=== PATIENT | male | born 1995 | race Hispanic/Latino ===

== ENCOUNTER 2019-09-19 05:21 | Inpatient (IN) | payer MEDICAID, OTHER ==
[~2019-09-19] VITALS: Ht 162.6 cm; Wt 68.0 kg
[2019-09-19] VITALS (25 sets, daily range): BP systolic 96–135; BP diastolic 50–91
[2019-09-19] MEDS ORDERED: ONDANSETRON HCL 4 MG/2 ML VIAL ONE ×2 (05:41→10:36)
[2019-09-19] MEDS ORDERED: MORPHINE SULFATE 4 MG/1ML SYG ONE (05:41)
[2019-09-19 05:45] LABS: BASOPHILS % (AUTO) 0.3 % (0.0-5.0); EOSINOPHILS % (AUTO) 0.5 % (0.0-8.0); HEMATOCRIT 43.7 % (42-54); LYMPHOCYTES % (AUTO) 14.2 % (21.0-51.0); MEAN CORPUSCULAR HEMOGLOBIN 32.1 pg (27.0-33.0); MEAN CORPUSCULAR HGB CONC 37.3 g/dL (32.0-36.0); MEAN CORPUSCULAR VOLUME 86.2 fL (79-99); MONOCYTES % (AUTO) 7.8 % (3.0-13.0); NEUTROPHILS % (AUTO) 76.9 % (40.0-77.0); PLATELET COUNT (AUTO) 258 K/uL (130-400); RED BLOOD CELL COUNT(AUTO) 5.07 MIL/uL (4.50-6.20); RED CELL DISTRIBUTION WIDTH 11.2 % (11.0-15.5); WHITE BLOOD COUNT (AUTO) 14.4 K/uL (4.8-10.8)
[2019-09-19 06:10] LABS: ALBUMIN 4.3 g/dL (3.5-5.0); BILIRUBIN,TOTAL 0.7 mg/dL (0.2-1.0)
[2019-09-19 06:11] LABS: TOTAL PROTEIN, SERUM 7.6 g/dL (6.0-8.3)
[2019-09-19 06:16] LABS: POTASSIUM 2.9 mmol/L (3.5-5.1)
[2019-09-19] MEDS ORDERED: IOHEXOL-350 75 ML VIAL IV ONE (06:21)
[2019-09-19] MEDS ORDERED: POTASSIUM BICARB/CIT AC 25 MEQ TABLET.EFF ONE (06:23)
[2019-09-19] MEDS ORDERED: ZOSYN 3.375GM+NS 50ML 50 ML IV ONE (07:37)
[2019-09-19] MEDS ORDERED: POTASSIUM CHLORIDE 20MEQ/100ML 100 ML IV ONE (08:56)
[2019-09-19] MEDS ORDERED: LIDOCAINE HCL-MPF 1% 2ML VIAL ONE (08:57)
[2019-09-19] MEDS ORDERED: PROPOFOL 10 MG/ML 20ML VIAL IV ONE (09:37)
[2019-09-19] MEDS ORDERED: SUCCINYLCHOLINE CHLORIDE 20 MG/ML 10 ML VIAL ONE (09:37)
[2019-09-19] MEDS ORDERED: MIDAZOLAM HCL 1 MG/ML 2ML VIAL ONE (09:37)
[2019-09-19] MEDS ORDERED: LIDOCAINE PF 2% 5ML ABBOJECT ONE (09:37)
[2019-09-19] MEDS ORDERED: ROCURONIUM 10MG/1ML SYR 10 MG/ML ML ONE (09:38)
[2019-09-19] MEDS ORDERED: FENTANYL CITRATE PF 50 MCG/1 ML 5ML AMP IV ONE (09:38)
[2019-09-19 09:42] LABS: APPEARANCE,URINE Clear (CLEAR); BILIRUBIN,URINE Negative (NEGATIVE); COLOR,URINE Dark Yellow (YELLOW); GLUCOSE, URINE (UA) Negative (NEGATIVE); KETONES,URINE 15 mg/dL (NEGATIVE); LEUKOCYTE ESTERASE ,URINE Negative (NEGATIVE); NITRATE,URINE Negative (NEGATIVE); OCCULT BLOOD,URINE Negative (NEGATIVE); PH,URINE 5.5 (5.0-8.0); PROTEIN,URINE Trace mg/dL (NEGATIVE)
[2019-09-19 09:49] LABS: AMPHET/METH SCREEN,URINE NEGATIVE (NEGATIVE); BARBITURATE SCREEN, URINE NEGATIVE (NEGATIVE); BENZODIAZEPINES SCREEN,URINE NEGATIVE (NEGATIVE); CANNABINOID SCREEN,URINE POSITIVE (NEGATIVE); COCAINE SCREEN,URINE POSITIVE (NEGATIVE); OPIATE SCREEN,URINE NEGATIVE (NEGATIVE); PHENCYCLIDINE SCREEN,URINE NEGATIVE (NEGATIVE)
[2019-09-19] MEDS ORDERED: BUPIVACAINE/PF 0.25% 30ML VIAL IJ ONE (10:21)
[2019-09-19] MEDS ORDERED: KETOROLAC TROMETHAMINE 30MG/ML ONE ×2 (10:35→18:46)
[2019-09-19] MEDS ORDERED: GLYCOPYRROLATE 1 MG/5 ML SYRINGE ONE (10:35)
[2019-09-19] MEDS ORDERED: NEOSTIGMINE 5MG/5ML SYR IV ONE (10:35)
[2019-09-19] MEDS ORDERED: MORPHINE-NS 50 MG/50 ML 50 ML IV PRN (11:00)
[2019-09-19] MEDS ORDERED: MEPERIDINE-PF 25 MG/ML SYG ONE (11:28)
[2019-09-19] MEDS: ONDANSETRON HCL 4 MG/2 ML VIAL IVP PRN ×2 (11:32→21:20)
[2019-09-19] MEDS: SODIUM CHLORIDE 0.9% 1000ML 1,000 ML IV SCH ×2 (12:33→20:30)
[2019-09-19] MEDS ORDERED: POTASSIUM CHLORIDE 20MEQ/100ML 100 ML IV PRN (13:00)
[2019-09-19] MEDS: ZOSYN 3.375GM+NS 50ML 50 ML IV SCH ×2 (13:00→20:30)
[2019-09-19] MEDS: LORAZEPAM 2 MG/ML 1 ML VIAL IVP PRN (21:37)
[2019-09-20] MEDS: KETOROLAC TROMETHAMINE 30MG/ML IV PRN ×2 (02:04→08:24)
[2019-09-20] MEDS: ONDANSETRON HCL 4 MG/2 ML VIAL IVP PRN ×2 (02:04→09:24)
[2019-09-20 03:00] VITALS: BP 111/50
[2019-09-20] MEDS: ZOSYN 3.375GM+NS 50ML 50 ML IV SCH ×3 (04:16→20:54)
[2019-09-20 05:51] LABS: BASOPHILS % (AUTO) 0.4 % (0.0-5.0); EOSINOPHILS % (AUTO) 0.8 % (0.0-8.0); HEMATOCRIT 38.2 % (42-54); LYMPHOCYTES % (AUTO) 9.1 % (21.0-51.0); MEAN CORPUSCULAR HEMOGLOBIN 31.1 pg (27.0-33.0); MEAN CORPUSCULAR HGB CONC 34.8 g/dL (32.0-36.0); MEAN CORPUSCULAR VOLUME 89.3 fL (79-99); MONOCYTES % (AUTO) 7.7 % (3.0-13.0); NEUTROPHILS % (AUTO) 81.5 % (40.0-77.0); PLATELET COUNT (AUTO) 223 K/uL (130-400); RED BLOOD CELL COUNT(AUTO) 4.28 MIL/uL (4.50-6.20); RED CELL DISTRIBUTION WIDTH 11.4 % (11.0-15.5); WHITE BLOOD COUNT (AUTO) 12.8 K/uL (4.8-10.8)
[2019-09-20 06:10] LABS: ALBUMIN 2.8 g/dL (3.5-5.0); BILIRUBIN,TOTAL 0.8 mg/dL (0.2-1.0); CREATININE 0.9 mg/dL (0.5-1.5); MAGNESIUM 1.7 mg/dL (1.80-2.40); POTASSIUM 3.7 mmol/L (3.5-5.1); TOTAL PROTEIN, SERUM 5.6 g/dL (6.0-8.3)
[2019-09-20 08:07] VITALS: BP 104/66
[2019-09-20 11:58] VITALS: BP 115/52
[2019-09-20] MEDS: SODIUM CHLORIDE 0.9% 1000ML 1,000 ML IV SCH ×2 (13:46→21:33)
--- NOTE | 2019-09-20 14:26 | NUR ---
HOSPITALISTS MADE AWARE OF CONSULT. PENDING TO SEE
[2019-09-20 16:40] VITALS: BP 102/55
--- NOTE | 2019-09-20 17:19 | NUR ---
D/C PLAN CM spoke to pt regarding d/c planning. Pt is ind. and lives with brother. States family can assist with transportation home at discharge. Denies having any DME. Plan to home. No needs verbalized. CM to f/u. Addendum: 09/20/19 at 1720 by IRVING DOMÍNGUEZ CM Amended: Links added.
[2019-09-20 20:03] VITALS: BP 112/66
[2019-09-20] MEDS: PANTOPRAZOLE 40 MG/VIAL IVP SCH (20:54)
[2019-09-20 23:42] VITALS: BP_SYST 111; BP_SYST 117; BP_DIAS 68; BP_DIAS 69
[2019-09-21] MEDS: SODIUM CHLORIDE 0.9% 1000ML 1,000 ML IV SCH ×2 (02:20→20:30)
[2019-09-21 03:35] VITALS: BP 113/61
[2019-09-21 05:48] LABS: BASOPHILS % (AUTO) 0.4 % (0.0-5.0); EOSINOPHILS % (AUTO) 3.2 % (0.0-8.0); HEMATOCRIT 35.9 % (42-54); MEAN CORPUSCULAR HEMOGLOBIN 31.8 pg (27.0-33.0); MEAN CORPUSCULAR HGB CONC 35.1 g/dL (32.0-36.0); MEAN CORPUSCULAR VOLUME 90.7 fL (79-99); MONOCYTES % (AUTO) 9.5 % (3.0-13.0); NEUTROPHILS % (AUTO) 72.5 % (40.0-77.0); PLATELET COUNT (AUTO) 218 K/uL (130-400); RED BLOOD CELL COUNT(AUTO) 3.96 MIL/uL (4.50-6.20); RED CELL DISTRIBUTION WIDTH 11.2 % (11.0-15.5); WHITE BLOOD COUNT (AUTO) 11.4 K/uL (4.8-10.8)
[2019-09-21] MEDS: ZOSYN 3.375GM+NS 50ML 50 ML IV SCH ×3 (05:50→21:58)
[2019-09-21 06:07] LABS: ALBUMIN 2.8 g/dL (3.5-5.0); BILIRUBIN,TOTAL 0.6 mg/dL (0.2-1.0); CREATININE 0.9 mg/dL (0.5-1.5); MAGNESIUM 1.9 mg/dL (1.80-2.40); POTASSIUM 3.5 mmol/L (3.5-5.1); TOTAL PROTEIN, SERUM 5.8 g/dL (6.0-8.3)
[2019-09-21] MEDS: POTASSIUM CHLORIDE 20MEQ/100ML 100 ML IV SCH (06:45)
[2019-09-21] MEDS: LIDOCAINE HCL-MPF 1% 2ML VIAL IV PRN (06:45)
[2019-09-21 07:30] VITALS: BP 106/56
--- NOTE | 2019-09-21 09:10 | NUR ---
PT NGT HAD 650 ML OF COFFEE GROUND OUTPUT. DR JUAREZ SAW PT. PER MD PLAN IS TO CLAMP NGT, FLUSH WITH 1L OF ICE WATER, AND CHECK RESIDUAL Q4 HRS. IF RESIDUALS IS LESS THAN 50 CC NGT MAY BE D/C.
[2019-09-21 11:00] VITALS: BP 121/69
[2019-09-21] MEDS ORDERED: SODIUM CHLORIDE 0.9% 250 ML IV ONE (11:40)
[2019-09-21] MEDS ORDERED: SODIUM CHLORIDE 0.9% 100 ML IV ONE (11:43)
[2019-09-21] MEDS: PANTOPRAZOLE 40 MG/VIAL IVP SCH ×2 (11:49→21:58)
[2019-09-21] MEDS: M.V.I. IV [ADULT] 10 ML, FOLIC ACID 1 MG, THIAMINE HCL 100 MG in SODIUM CHLORIDE 0.9% 1... IV SCH (11:50)
[2019-09-21 15:30] VITALS: BP 106/69
--- NOTE | 2019-09-21 15:44 | NUR ---
CHART REVIEWED, NO NEW DISCHARGE NEEDS REVEALED Addendum: 09/21/19 at 1545 by BRENDA CYR RN CM Amended: Links added.
--- NOTE | 2019-09-21 16:10 | NUR ---
CHARGE NURSE ALDEN COPPOLA AND 2ND FLOOR NURSE ASSISTED WITH PT FLUSH PER MD ORDER. INSTILLED 250 ML OF ICE WATER INTO NGT, PT STATED FEELING FULL. NO RISIDUAL NOTED. WAS INSTRUCTED TO CALL DR JUAREZ FOR FURTHER INSTRUCTION AND TO TELL HER PT TOLERATED ONLY 250 ML OF THE FLUSH. PT DENIES ANY PAIN. WILL CONTINUE TO MONITOR. PT ON NGT SUCTION.
--- NOTE | 2019-09-21 16:20 | NUR ---
SPOKE TO DR JUAREZ REGARDING PT. PER MD KEEP SUCTION ON 2HRS , CLAMP IF NOT DRAINING. IF NO N/V, REMOVE NGT. AND IF REMOVED IF PT BEGINS TO VOMIT PLACE NGT AGAIN.
--- NOTE | 2019-09-21 18:00 | NUR ---
NOTED 200 ML OF YELLOWISH DRAINAGE FROM NGT. PT CONTINUES ON SUCTION, DENIES ANY PAIN AT THIS MOMENT. WILL CONTINUE TO MONITOR.
[2019-09-21 20:00] VITALS: BP 119/70
--- NOTE | 2019-09-21 20:21 | NUR ---
PAGED PAGED TAYLER AIKEN [employer] SERVICE ATTENDANT FOR HOSPITALIST, AND REFERRED PT'S IVF ORDERS. NEW ORDERS GIVEN, PLEASE REFER TO CPOE.
--- NOTE | 2019-09-21 22:00 | NUR ---
MEDS SHIFT ASSESSMENT DONE, PLEASE REFER TO CHART. DUE MEDS ADMINISTERED, TOLERATED WELL.VERIFIED NGT PLACEMENT AND RESIDUAL, ONLY 10CC WAS PULLED OUT. CLAMMED NGT FOR NOW. KEPT NPO. WILL RE-ASSESS NGT RESIDUAL IN 2 HOURS. KEPT COMFORTABLE IN BED. CALL LIGHT WITHIN REACH. Addendum: 09/21/19 at 2256 by JONELLE SPARKS RN RN Amended: Links added.
[2019-09-22] VITALS (7 sets, daily range): BP systolic 100–128; BP diastolic 59–80
--- NOTE | 2019-09-22 | NUR ---
NGT PT CLAIMS HE DOES NOT HAVE PAINS EXCEPT FOR THE SX SUTURES WHEN HE MOVES. NO REPORTED NAUSEA. NGT REMOVED. WILL RE-ASSESS PT. INSTRUCTED PT TO REPORT ANY UNTOWARD S AND SX. ENCOURAGED TO REST AND SLEEP.
[2019-09-22] MEDS: MAGNESIUM 2GM PREMIX 50ML 50 ML IV SCH (00:01)
--- NOTE | 2019-09-22 02:00 | NUR ---
RE-ASSESS PT STILL AWAKE REQUESTING TO SHOWER. NO NAUSEA NOR ABDOMINAL PAINS REPORTED. SALINE LOCKED FOR NOW. PCP IN TO ASSIST PT FOR HIS SHOWER.
[2019-09-22] MEDS: ZOSYN 3.375GM+NS 50ML 50 ML IV SCH ×3 (04:36→20:23)
--- NOTE | 2019-09-22 05:10 | NUR ---
ROUNDS PT WAS DOSING OFF BUT AWAKENS WHEN MERRY GO ROUND ATTENDANT ENTERS ROOM. NO COMPLAINTS VERBALIZED. KEPT RESTED. FOR MORE CARE.
[2019-09-22] MEDS: SODIUM CHLORIDE 0.9% 1000ML 1,000 ML IV SCH ×2 (05:32)
[2019-09-22 05:53] LABS: BASOPHILS % (AUTO) 0.8 % (0.0-5.0); EOSINOPHILS % (AUTO) 4.4 % (0.0-8.0); HEMATOCRIT 33.2 % (42-54); LYMPHOCYTES % (AUTO) 18.5 % (21.0-51.0); MEAN CORPUSCULAR HEMOGLOBIN 31.8 pg (27.0-33.0); MEAN CORPUSCULAR HGB CONC 35.5 g/dL (32.0-36.0); MEAN CORPUSCULAR VOLUME 89.5 fL (79-99); MONOCYTES % (AUTO) 8.8 % (3.0-13.0); PLATELET COUNT (AUTO) 235 K/uL (130-400); RED BLOOD CELL COUNT(AUTO) 3.71 MIL/uL (4.50-6.20); WHITE BLOOD COUNT (AUTO) 9.9 K/uL (4.8-10.8)
[2019-09-22 06:17] LABS: ALBUMIN 2.5 g/dL (3.5-5.0); BILIRUBIN,TOTAL 0.6 mg/dL (0.2-1.0); CREATININE 0.8 mg/dL (0.5-1.5); MAGNESIUM 2.2 mg/dL (1.80-2.40); POTASSIUM 3.6 mmol/L (3.5-5.1); TOTAL PROTEIN, SERUM 5.5 g/dL (6.0-8.3)
[2019-09-22] MEDS: LIDOCAINE HCL-MPF 1% 2ML VIAL IV PRN (06:34)
[2019-09-22] MEDS: POTASSIUM CHLORIDE 20MEQ/100ML 100 ML IV SCH (06:34)
[2019-09-22 07:13] LABS: HEPATITIS A ANTIBODY IGM Negative (Negative); HEPATITIS B CORE IGM Negative (Negative); HEPATITIS Bs ANTIGEN SCREEN P Negative (Negative)
[2019-09-22] MEDS: PANTOPRAZOLE 40 MG/VIAL IVP SCH ×2 (09:19→20:23)
[2019-09-22] MEDS: M.V.I. IV [ADULT] 10 ML, FOLIC ACID 1 MG, THIAMINE HCL 100 MG in SODIUM CHLORIDE 0.9% 1... IV SCH (09:34)
--- NOTE | 2019-09-22 11:15 | NUR ---
SUBSTANCE ABUSE SW met with pt who states that he has been a regular cocaine user for the past year. Pt reports he uses cocaine "every 2 days" and drinks beer and liquor when he "has change to buy it". Pt lives with his mother and states she is aware of his drinking but cocaine abuse is a secret. Pt has never gotten help for substance abuse issues. Pt states he does not need or want help for his substance abuse issues but accepted resource list offered.
[2019-09-23] MEDS: LORAZEPAM 2 MG/ML 1 ML VIAL IVP PRN (00:16)
[2019-09-23 03:20] VITALS: BP 136/65
[2019-09-23] MEDS: ZOSYN 3.375GM+NS 50ML 50 ML IV SCH ×3 (04:02→20:43)
[2019-09-23 04:36] LABS: BASOPHILS % (AUTO) 1.2 % (0.0-5.0); EOSINOPHILS % (AUTO) 7.5 % (0.0-8.0); HEMATOCRIT 33.1 % (42-54); LYMPHOCYTES % (AUTO) 33.8 % (21.0-51.0); MEAN CORPUSCULAR HGB CONC 35.3 g/dL (32.0-36.0); MEAN CORPUSCULAR VOLUME 87.6 fL (79-99); MONOCYTES % (AUTO) 7.6 % (3.0-13.0); NEUTROPHILS % (AUTO) 49.6 % (40.0-77.0); PLATELET COUNT (AUTO) 245 K/uL (130-400); RED BLOOD CELL COUNT(AUTO) 3.78 MIL/uL (4.50-6.20); RED CELL DISTRIBUTION WIDTH 10.9 % (11.0-15.5); WHITE BLOOD COUNT (AUTO) 6.4 K/uL (4.8-10.8)
[2019-09-23 04:54] LABS: CREATININE 0.8 mg/dL (0.5-1.5); MAGNESIUM 1.8 mg/dL (1.80-2.40); POTASSIUM 3.5 mmol/L (3.5-5.1)
[2019-09-23] MEDS ORDERED: HYDROCODONE/ACETAMINOPHEN 7.5/325 MG TAB PO PRN (08:00)
[2019-09-23 08:01] VITALS: BP 131/58
[2019-09-23] MEDS: M.V.I. IV [ADULT] 10 ML, FOLIC ACID 1 MG, THIAMINE HCL 100 MG in SODIUM CHLORIDE 0.9% 1... IV SCH (09:00)
[2019-09-23] MEDS ORDERED: POTASSIUM CHLORIDE 20 MEQ ERTAB PO ONE (09:57)
[2019-09-23] MEDS ORDERED: POTASSIUM CHLORIDE 20 MEQ ERTAB PO SCH (10:00)
[2019-09-23] MEDS: PANTOPRAZOLE 40 MG/VIAL IVP SCH ×2 (10:17→20:43)
[2019-09-23] MEDS: MAGNESIUM 2GM PREMIX 50ML 50 ML IV SCH (10:19)
[2019-09-23 11:35] VITALS: BP 162/57
[2019-09-23] MEDS ORDERED: TRAZODONE HCL 50 MG TAB PO PRN (14:00)
[2019-09-23 16:50] VITALS: BP 112/64
[2019-09-23 20:08] VITALS: BP 131/70
[2019-09-23 23:39] VITALS: BP 114/73
[2019-09-24 03:36] VITALS: BP 120/68
[2019-09-24] MEDS: ZOSYN 3.375GM+NS 50ML 50 ML IV SCH ×2 (04:29→13:00)
[2019-09-24 06:10] LABS: HEMATOCRIT 35.1 % (42-54)
[2019-09-24 06:21] LABS: POTASSIUM 3.7 mmol/L (3.5-5.1)
[2019-09-24 07:40] VITALS: BP 112/60
[2019-09-24] MEDS ORDERED: PAROXETINE HCL 20 MG TABLET PO SCH (09:00)
[2019-09-24] MEDS ORDERED: FOLIC ACID 1 MG TABLET PO SCH (09:00)
[2019-09-24] MEDS ORDERED: THIAMINE HCL 100 MG TABLET PO SCH (09:00)
[2019-09-24] MEDS: PANTOPRAZOLE 40 MG/VIAL IVP SCH (10:20)
[2019-09-24 11:08] VITALS: BP 109/51
[2019-09-24] MEDS ORDERED: THIA100T91 PO (11:24)
[2019-09-24] MEDS ORDERED: PANT40TA PO (11:24)
[2019-09-24] MEDS ORDERED: FOLI1 PO (11:24)
--- NOTE | 2019-09-24 17:00 | NUR ---
NOTE DISCHARGE INSTRUCTIONS GIVEN AT THIS TIME. REFER TO DC SUMMARY FOR DETAILS. INCISION CLEAN DRY. ERAN AL INTACT. NO DEHISCENCE. NO C/O PAIN. NO DISTRESS. INSTRUTED ABOUT NO DRIVING FOR 2 WEEKS AND NO HEAVY LIFTING. FOLLOW UP APPOINTMENT GIVEN TO SEE DR JUAREZ AND INFORMATION ON ALL MEDS AND BLAND DIET.
== END 2019-09-24 17:30 | disposition home or self-care (01) | DRG 326 ==
LOC: EDH 05:21 → EDHIP 05:22 → 3AH 12:23
PROVIDERS: ADMIT Hospitalist; ATTEND Hospitalist
PROC: 0DB60ZX Excision of Stomach, Open Approach, Diagnostic (ICD-10-PCS; 2019-09-19)
PROC: 0DQ60ZZ Repair Stomach, Open Approach (ICD-10-PCS; 2019-09-19)
PROC: 0DU607Z Supplement Stomach with Autologous Tissue Substitute, Open Approach (ICD-10-PCS; principal; 2019-09-19 09:47)
DX: K25.5 Chronic or unspecified gastric ulcer with perforation (principal); K65.0 Generalized (acute) peritonitis; E87.6 Hypokalemia; F10.10 Alcohol abuse, uncomplicated; F14.90 Cocaine use, unspecified, uncomplicated; F12.90 Cannabis use, unspecified, uncomplicated; Z83.3 Family history of diabetes mellitus
CPT/HCPCS: 36415; 74177; 80048; 80053; 80074; 80305; 81003; 83605; 83690; 83735; 84132; 85014; 85018; 85025; 86677; 86701; 87040; 87338; 87390; 88305; 88312; 93005; A4344; C9113; G0378; G0480; J0330; J1885; J2001; J2060; J2175; J2250; J2270; J2405; J2543; J2704; J2710; J3010; J3411; J3475; J3480; J3490; J7030; J7050; Q9967

== ENCOUNTER 2024-04-30 12:46 | Emergency (ER) | payer SELFPAY ==
[~2024-04-30] VITALS: Ht 162.6 cm; Wt 59.9 kg
[~2024-04-30 12:46] MED LIST: FOLI1 PO; PANT40TA PO; THIA100T91 PO
[2024-04-30 13:27] LABS: AMPHET/METH SCREEN,URINE NEGATIVE (NEGATIVE); BARBITURATE SCREEN, URINE NEGATIVE (NEGATIVE); BENZODIAZEPINES SCREEN,URINE NEGATIVE (NEGATIVE); CANNABINOID SCREEN,URINE POSITIVE (NEGATIVE); COCAINE SCREEN,URINE NEGATIVE (NEGATIVE); OPIATE SCREEN,URINE NEGATIVE (NEGATIVE); PHENCYCLIDINE SCREEN,URINE NEGATIVE (NEGATIVE)
[2024-04-30 13:27] LABS: BASOPHILS # (AUTO) 0.09 K/uL (0.00-0.20); BASOPHILS % (AUTO) 1.1 % (0.0-5.0); EOSINOPHILS # (AUTO) 0.16 K/uL (0.00-0.70); EOSINOPHILS % (AUTO) 1.9 % (0.0-8.0); HEMATOCRIT 39.8 % (42-54); IMMATURE GRANULOCYTE ABSOLUTE 0.11 K/uL (0-1); LYMPHOCYTES # (AUTO) 1.9 K/uL (1.0-4.8); LYMPHOCYTES % (AUTO) 22.7 % (21.0-51.0); MEAN CORPUSCULAR HEMOGLOBIN 31.7 pg (27.0-33.0); MEAN CORPUSCULAR HGB CONC 35.2 g/dL (32.0-36.0); MEAN CORPUSCULAR VOLUME 90.2 fL (79-99); MONOCYTES # (AUTO) 0.5 K/uL (0.1-1.0); MONOCYTES % (AUTO) 5.9 % (3.0-13.0); NEUTROPHILS # (AUTO) 5.6 K/uL (1.8-7.7); NEUTROPHILS % (AUTO) 67.1 % (40.0-77.0); PLATELET COUNT (AUTO) 313 K/uL (130-400); RED BLOOD CELL COUNT(AUTO) 4.41 MIL/uL (4.50-6.20); WHITE BLOOD COUNT (AUTO) 8.3 K/uL (4.8-10.8)
[2024-04-30 13:33] LABS: CARBON DIOXIDE 29 mmol/L (21-32); CHLORIDE 105 mmol/L (101-111); CREATININE 0.7 mg/dL (0.5-1.3); GLOMERULAR FILTR. RATE CALC 130 mL/min (>90); GLUCOSE,RANDOM 87 mg/dL (70-105); POTASSIUM 4.2 mmol/L (3.5-5.1); SODIUM SERUM 141 mmol/L (136-145); UREA NITROGEN, BLOOD 12 mg/dL (7-18)
--- NOTE | 2024-04-30 13:34 | ERN ---
General Chief Complaint: Psych Evaluation Stated Complaint: PSYCHE EVALUATION Time Seen by MD: 12:49 History of Present Illness Initial Comments 29-year-old male who presents for suicidal ideation. Patient got into an argument with his family, reports that he threatened to hurt himself and then he wants to hurt himself. He does not have a plan. He denies any homicidal ideation. Denies any auditory or visual hallucinations. Denies drug abuse. Allergies: Coded Allergies: No Allergy Information Available (Verified Allergy, Unknown, 09/19/19) Home Meds Active Scripts Pantoprazole Sodium (Protonix) 40 Mg Tablet.dr, 40 MG PO BID for 30 Days, #60 TAB 0 Refills Prov:EFREN DUARTE MD 09/24/19 Folic Acid (Folvite) 1 Mg Tab, 1 MG PO DAILY for 30 Days, #30 TAB 0 Refills Prov:EFREN DUARTE MD 09/24/19 Thiamine HCl (Vitamin B-1) 100 Mg Tablet, 100 MG PO DAILY for 30 Days, #30 TAB 0 Refills Prov:EFREN DUARTE MD 09/24/19 Past Medical History Past Medical History: Other Past Surgical History: Other ROS Dictation CONSTITUTIONAL: No chills, no fever, no weakness, no diaphoresis, no malaise. HEAD/FACE: No signs of trauma. EENT: No eye pain, no blurred vision, no tearing, no double vision, no ear pain, no ear discharge, no nose pain, no nasal congestion, no throat pain, no throat swelling, no mouth pain. RESPIRATORY: No cough, no orthopnea, no SOB, no stridor, no wheezing. CARDIOVASCULAR: No chest pain, no edema, no palpitations, no syncope. GASTROINTESTINAL/ABDOMINAL: No abdominal pain, no constipation, no diarrhea, no nausea, no vomiting. GENITOURINARY: No abnormal discharge, no dysuria, no frequent urination, no hematuria. No complaints of pain in the genitals. MUSCULOSKELETAL: No back pain, no gout, no joint pain, no joint swelling, no muscle pain, no muscle stiffness, no neck pain. INTEGUMENTARY: No change in color, no change in hair/nails, no dryness, no lesion, no lumps, no rash. NEUROLOGICAL/PSYCH: Suicidal ideation HEMATOLOGIC/LYMPHATIC: Not anemic, no history of blood clots, no apparent bleeding, no bruising, glands not swollen. All Systems Negative, Except as Noted. Physical Exam Physical Exam Dictation VITAL SIGNS: Reviewed. GENERAL APPEARANCE: Alert, oriented x3, no acute distress HEAD AND FACE: Non-traumatic. EYES: PERRL, pink conjunctivas, eyelid no trauma, anterior chamber clear. EARS: Pinnas intact and no signs of trauma or erythema. Ear canals clear and no discharge. TMs no erythema. NOSE: No discharge, no bleeding. OROPHARYNX: Mouth normal, teeth no caries, tongue pink. Pharynx clear, no erythema. Tonsils no exudates, no abscesses noted. Mucous membrane moist. NECK: Supple, non-tender, no thyromegaly, no masses, no JVD, no bruits. BREAST: Deferred. CHEST: No tenderness, no crepitus, no paradoxical movement, no retractions. LUNGS: Clear, well-ventilated, symmetric, no rales, no wheezing, no rhonchi, no stridor, good breath sounds bilaterally. HEART: Regular rate, regular rhythm, no murmur, no gallops. VASCULAR: No peripheral edema. ABDOMEN: Soft, positive bowel sounds, nondistended, no guarding, nontender, no rebound, no masses no hepatomegaly, no splenomegaly, no Vaz's sign, no hernias. RECTAL: Deferred. GENITAL: Deferred. NEUROLOGICAL: Normal speech, gross motor function intact, gross sensory function intact. MUSCULOSKELETAL: Neck nontender, full range of motion, back nontender, full range of motion. EXTREMITIES: Nontender, full range of motion. SKIN: Color pink, dry, no turgor, no rash, no lacerations, no abrasions, no contusions. LYMPHATICS: Deferred. Results Laboratory and Microbiology Lab and Micro Result Laboratory Tests Test 04/30/24 13:12 04/30/24 13:16 Urine Opiates Screen NEGATIVE (NEGATIVE) Urine Barbiturates Screen NEGATIVE (NEGATIVE) Urine Phencyclidine Screen NEGATIVE (NEGATIVE) Urine Amphetamines Screen NEGATIVE (NEGATIVE) Urine Benzodiazepines Screen NEGATIVE (NEGATIVE) Urine Cocaine Screen NEGATIVE (NEGATIVE) Urine Marijuana (THC) Screen POSITIVE (NEGATIVE) H White Blood Count 8.3 K/uL (4.8-10.8) Red Blood Count 4.41 MIL/uL (4.50-6.20) L Hemoglobin 14.0 g/dL (14.0-18.0) Hematocrit 39.8 % (42-54) L Mean Corpuscular Volume 90.2 fL (79-99) Mean Corpuscular Hemoglobin 31.7 pg (27.0-33.0) Mean Corpuscular Hemoglobin Concent 35.2 g/dL (32.0-36.0) Red Cell Distribution Width 12.0 % (11.0-15.5) Platelet Count 313 K/uL (130-400) Mean Platelet Volume 9.5 fL (7.5-10.5) Immature Granulocyte % (Auto) 1.3 % (0-1) H Neutrophils (%) (Auto) 67.1 % (40.0-77.0) Lymphocytes (%) (Auto) 22.7 % (21.0-51.0) Monocytes (%) (Auto) 5.9 % (3.0-13.0) Eosinophils (%) (Auto) 1.9 % (0.0-8.0) Basophils (%) (Auto) 1.1 % (0.0-5.0) Neutrophils # (Auto) 5.6 K/uL (1.8-7.7) Lymphocytes # (Auto) 1.9 K/uL (1.0-4.8) Monocytes # (Auto) 0.5 K/uL (0.1-1.0) Eosinophils # (Auto) 0.16 K/uL (0.00-0.70) Basophils # (Auto) 0.09 K/uL (0.00-0.20) Absolute Immature Granulocyte (auto 0.11 K/uL (0-1) Nucleated Red Blood Cells 0.0 % (0.0-0.19) Sodium Level 141 mmol/L (136-145) Potassium Level 4.2 mmol/L (3.5-5.1) Chloride Level 105 mmol/L (101-111) Carbon Dioxide Level 29 mmol/L (21-32) Blood Urea Nitrogen 12 mg/dL (7-18) Creatinine 0.7 mg/dL (0.5-1.3) Glomerular Filtration Rate Calc 130 mL/min (>90) Random Glucose 87 mg/dL (70-105) Total Calcium 9.5 mg/dL (8.5-10.1) Total Creatine Kinase 80 U/L (21-232) Salicylates Level 3.8 mg/dL (2.8-20.0) Acetaminophen Level < 1 mcg/mL (10-29) L Serum Alcohol < 3 mg/dL (0-10) MDM CC: Suicidal ideation Historian: Patient Comorbidities: None Limitations by social determinants of health: Uninsured Differential diagnosis: Suicidal ideation, drug abuse, alcohol abuse, homicidal ideation, auditory hallucinations, other. Vital signs stable Clinical exam is unremarkable. Lab work is unremarkable. Independently interpreted by me, normal CBC BMP UDS alcohol level Tylenol level etc.. Patient was monitored here in the ER. We did contact [facility] for re-evaluation. After a few hours here in the ER, the patient reports that he is no longer suicidal and he is not want to stay in the ER. He was here voluntarily to get evaluated by [facility], and currently has a GCS of 15 able to make all decisions. I have low suspicion that he is a threat to himself or to others. He is having no auditory or visual hallucinations. We will DC to PCP follow up as needed. ED Course Orders Procedure Category Date Status Time Cbc With Differential LAB 04/30/24 Complete 13:02 Alcohol, Blood LAB 04/30/24 Complete 13:02 Salicylate LAB 04/30/24 Complete 13:02 Acetaminophen LAB 04/30/24 Complete 13:02 12 Lead Ekg Tracing- EKG 04/30/24 Resulted Technical 13:02 Creatine Kinase, Total LAB 04/30/24 Complete 13:02 Basic Metabolic Panel LAB 04/30/24 Complete 13:02 Drug Screen Urine LAB 04/30/24 Complete 13:02 Vital Signs Date Time Temp Pulse Resp B/P (MAP) Pulse Ox O2 Delivery O2 Flow Rate FiO2 04/30/24 17:00 62 18 110/55 99 Room Air* 0 04/30/24 14:27 98.2 54 16 107/52 98 Room Air* 0 04/30/24 12:50 98.2 75 20 110/87 99 Room Air DX & DISP Disposition: Discharge Departure Impression: Primary Impression: Suicidal ideation Condition: Stable Additional Instructions: Please return to the emergency department as needed. Referrals: SELF,REFERRAL (PCP) CAN HUNTER DO Apr 30, 2024 13:34
[2024-04-30 13:39] LABS: ALCOHOL, BLOOD < 3 mg/dL (0-10); CREATINE KINASE, TOTAL 80 U/L (21-232); SALICYLATE 3.8 mg/dL (2.8-20.0)
[2024-04-30 13:41] LABS: ACETAMINOPHEN < 1 mcg/mL (10-29)
--- NOTE | 2024-04-30 14:08 | EKG ---
[facility] Test Date: 2024-04-30 Test Time: 14:02:40 Pat Name: RAFFI BLACKWELL Department: ED Room: Gender: Male Neuroscience Specialist: [id number] : 1995 Requested By: CAN HUNTER Order Number: [id number] Reading MD: Chan Mac Measurements Intervals [place] Rate: 49 P: 52 AK: 164 QRS: 55 QRSD: 92 T: 37 QT: 408 QTc: 368 Interpretive Statements Sinus bradycardia Electronically Signed On 04-30-2024 14:08:17 WIRE CHARGER by Chan Mac Please click the below link to view image of tracing.
--- NOTE | 2024-04-30 14:15 | NUR ---
CALLED [facility] FOR PSYCH EVAL AND THEY WILL DISPATCH A PSYCH SCREENER.
[2024-04-30 14:27] VITALS: TEMP 98.3
--- NOTE | 2024-04-30 16:15 | NUR ---
FOLLOWED UP WITH [facility] FOR ETA ON SCREENER, DISPATCH WILL CALL BACK WITH A ETA.
[2024-04-30 17:00] VITALS: BP 110/55; PULSE 62; RESP 18; O2SAT 99
--- NOTE | 2024-04-30 17:15 | NUR ---
PT UPDATED ON SCREENER ETA AND WILL BE ANOTHER 2-3 HR. PT WANTING TO LEAVE AND NOT WILLING TO STAY LONGER. PT DENIES SUICIDAL IDEATION,HOMOCIDAL IDEATION, AND OR PSYCHOSIS. PT ADVISED OF CONSEQUENCES LEAVING AMA. PT VERBALIZED UNDERSTANDING. PT REFUSING TO SIGN AMA FORM. WALKED OUT [facility]. NAD. DR HUNTER MADE AWARE.
== END 2024-04-30 17:38 | disposition left against medical advice (07) ==
LOC: EDH 12:46
DX: R45.851 Suicidal ideations (principal); Z79.899 Other long term (current) drug therapy; Z98.890 Other specified postprocedural states
CPT/HCPCS: 99284; 82550; 80048; 80305; 85025; 36415; 93005; G0481